=== PATIENT | female | born 2000 | race Caucasian/White ===

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

== ENCOUNTER → 2021-02-07 | Outpatient (CLI) | payer BC | LOC: LAB 16:06 | DX: B37.0 Candidal stomatitis (principal) ==

== ENCOUNTER → 2022-05-19 | Outpatient (CLI) | payer BC | LOC: RAD 16:43 | DX: M51.34 Other intervertebral disc degeneration, thoracic region (principal); M54.2 Cervicalgia ==

== ENCOUNTER → 2023-12-31 | Outpatient (CLI) | payer BC ==
[2023-12-31 16:12] LABS: CLUE CELLS OBSERVED (Not Observd)
== END ==
LOC: LAB 14:57
PROVIDERS: Nurse Practitioner
DX: N76.0 Acute vaginitis (principal)
CPT/HCPCS: Q0111

== ENCOUNTER → 2024-07-20 | Outpatient (CLI) | payer OTHER ==
[2024-07-20 10:06] LABS: BASO # 0.02 K/mm3 (0.02-0.10); EOS # 0.06 K/mm3 (0.04-0.40); EOS % 0.6 % (1.0-5.0); HEMATOCRIT 39.7 % (37.0-47.0); HEMOGLOBIN 12.6 g/dL (12.5-16.0); LYMPH# 2.43 K/mm3 (1.50-4.00); MEAN CELL VOLUME 82 fl (78-100); MEAN CORPUSCULAR HEMOGLOBIN 26 pg (27-31); MEAN CORPUSCULAR HGB CONC 32 g/dL (33-37); MEAN PLATELET VOLUME 9.7 fl (7.4-10.4); MONO # 0.57 K/mm3 (0.20-0.80); NEU # 6.14 K/mm3 (1.40-6.50); PLATELET COUNT 311 K/mm3 (130-400); RED BLOOD COUNT 4.85 M/mm3 (4.10-5.30); RED CELL DISTRIBUTION WIDTH 13.7 % (11.5-14.5); WHITE BLOOD COUNT 9.2 K/mm3 (4.8-10.8)
[2024-07-20 10:15] LABS: ALBUMIN 4.3 g/dL (3.5-5.0)
[2024-07-20 10:16] LABS: CALCIUM 9.4 mg/dL (8.3-10.5)
[2024-07-20 10:17] LABS: TOTAL PROTEIN 8.4 g/dL (6.4-8.3)
[2024-07-20 10:19] LABS: TOTAL BILIRUBIN 0.3 mg/dL (0.2-1.2)
== END ==
LOC: LAB 09:35
PROVIDERS: Family Medicine
DX: E55.9 Vitamin D deficiency, unspecified (principal); I10 Essential (primary) hypertension; E78.5 Hyperlipidemia, unspecified